=== PATIENT | female | born 2000 | race Caucasian/White ===

== ENCOUNTER 2019-06-06 16:55 | Observation (INO) | payer OTHER ==
[~2019-06-06] VITALS: Ht 175.3 cm; Wt 81.6 kg
[2019-06-06 17:29] LABS: HCG UR SG 1.038 (1.003-1.030); MICROSCOPIC NOT IND
[2019-06-06 17:36] LABS: CULTURE INDICATED? NO
--- NOTE | 2019-06-06 18:33 | NUR ---
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
--- NOTE | 2019-06-06 18:59 | NUR ---
ROUNDS COMPLETED. CALL LIGHT IN REACH.
[2019-06-06 19:24] LABS: BASOPHILS # (AUTO) 0.11 x10^3/uL (0-0.3); BASOPHILS % (AUTO) 1 % (0-1); EOSINOPHILS # (AUTO) 0.18 x10^3/uL (0-0.8); EOSINOPHILS % (AUTO) 2 % (1-7); LYMPHOCYTES # (AUTO) 2.25 x10^3/uL (1-6.1); LYMPHOCYTES % (AUTO) 21 % (22-44); MD NO; MEAN CORPUSCULAR HEMOGLOBIN 30.2 pg (27.0-34.8); MEAN CORPUSCULAR HGB CONC 32.8 g/dL (32.4-35.8); MEAN CORPUSCULAR VOLUME 92.2 fL (80-100); MEAN PLATELET VOLUME 8.4 fL (7.4-10.4); MONOCYTES # (AUTO) 1.33 x10^3/uL (0-1.4); MONOCYTES % (AUTO) 12 % (2-9); NEUTROPHILS # (AUTO) 7.12 x10^3/uL (1.8-8.0); NEUTROPHILS % (AUTO) 65 % (42-75); PLATELET COUNT 320 x10^3/uL (130-400); RED BLOOD COUNT 4.43 x10^6/uL (3.82-5.3)
[2019-06-06 19:32] LABS: ALANINE AMINOTRANSFERASE 22 U/L (12-78); ALBUMIN 3.6 g/dL (3.4-5.0); ANION GAP 1 mmol/L (5-15); CHLORIDE 108 mmol/L (98-107)
[2019-06-06 19:35] LABS: ALKALINE PHOSPHATASE 61 U/L (45-117); BILIRUBIN,TOTAL 0.3 mg/dL (0.2-1.0); TOTAL PROTEIN 8.2 g/dL (6.4-8.2)
--- NOTE | 2019-06-06 20:09 | NUR ---
ROUNDS COMPLETED. IV STARTED. TO CT.
--- NOTE | 2019-06-06 20:55 | NUR ---
BACK FROM CT.
[2019-06-06] MEDS ORDERED: OMNIPAQUE 350 MG/ML, 100ML BOTTLE ONE (20:57)
--- NOTE | 2019-06-06 21:36 | NUR ---
LAST PO INTAKE: 1829, 06/06/19. 09/04 PAIN, DENIES NEED FOR PAIN MEDS.
[2019-06-06] MEDS ORDERED: BUPIVACAINE/EPI 0.5% 1:200K ONE (21:50)
--- NOTE | 2019-06-06 21:59 | NUR ---
REPORT GIVEN TO OR.
[2019-06-06] MEDS ORDERED: MIDAZOLAM 1 MG/ML, 2ML ONE (22:59)
[2019-06-06] MEDS ORDERED: FENTANYL PF 100 MCG/2ML ONE (22:59)
[2019-06-07] MEDS ORDERED: BUPIVACAINE/EPI 0.5% 1:200K IM ONE (00:31)
[2019-06-07] MEDS ORDERED: ACETAMINOPHEN 325 MG TABLET PO PRN (01:00)
[2019-06-07] MEDS ORDERED: PROMETHAZINE 25 MG/ML, 1ML IV PRN (01:00)
[2019-06-07] MEDS ORDERED: HYDROmorphone 2 MG/ML, 1ML IVPush PRN (01:00)
[2019-06-07] MEDS ORDERED: OXYcodone 5 MG/5 ML ORAL.SOL UDC PO PRN (01:00)
[2019-06-07] MEDS ORDERED: LORazepam 2 MG/ML, 1ML IVPush PRN (01:00)
[2019-06-07] MEDS ORDERED: FENTANYL PF 100 MCG/2ML IV PRN (01:00)
[2019-06-07] MEDS ORDERED: ONDANSETRON ODT 8 MG PO PRN (01:00)
[2019-06-07] MEDS ORDERED: PROMETHAZINE 25 MG/ML, 1ML IM PRN (01:00)
[2019-06-07] MEDS ORDERED: MEPERIDINE/PF 25MG/ML,1ML IVPush PRN (01:00)
[2019-06-07] MEDS ORDERED: ONDANSETRON 2MG/ML, 2ML IV PRN (01:00)
[2019-06-07] MEDS ORDERED: OXYcodone 5 MG/5 ML ORAL.SOL UDC ONE (01:24)
[2019-06-07] MEDS ORDERED: FENTANYL PF 100 MCG/2ML ONE (01:24)
[2019-06-07] MEDS ORDERED: DEXAMETHASONE 4 MG/ML, 1ML ONE (01:25)
[2019-06-07] MEDS ORDERED: ONDANSETRON 2MG/ML, 2ML ONE (01:25)
[2019-06-07] MEDS ORDERED: SUCCINYLCHOLINE 20 MG/ML, 10ML ONE (01:25)
[2019-06-07] MEDS ORDERED: GLYCOPYRROLATE 0.2MG/1ML, 5ML ONE (01:25)
[2019-06-07] MEDS ORDERED: PROPOFOL 10 MG/ML, 20ML ONE (01:25)
[2019-06-07] MEDS ORDERED: CEFAZOLIN 1,000 MG ONE (01:25)
[2019-06-07] MEDS ORDERED: ROCURONIUM 10MG/ML,5ML ONE (01:25)
[2019-06-07] MEDS ORDERED: NEOSTIGMINE 1 MG/ML, 10ML ONE (01:25)
[2019-06-07] MEDS ORDERED: MEPERIDINE/PF 25MG/ML,1ML ONE (01:26)
[2019-06-07] MEDS ORDERED: LORazepam 2 MG/ML, 1ML ONE (01:36)
[2019-06-07] MEDS ORDERED: HYDR-3240 PO (02:45)
[2019-06-07] MEDS ORDERED: DOCU-131 PO (02:46)
[2019-06-07] MEDS ORDERED: ONDA4TAB7 PO (02:48)
[2019-06-07] MEDS ORDERED: HYDROcodone/APAP 5/325 TABLET PO PRN (03:00)
[2019-06-07] MEDS ORDERED: KETOROLAC 30 MG/1 ML IV PRN (03:00)
[2019-06-07] MEDS ORDERED: ONDANSETRON 2MG/ML, 2ML IVPush PRN (03:00)
[2019-06-07] MEDS ORDERED: LACTATED RINGERS 1,000 ML IV SCH (03:00)
[2019-06-07] MEDS ORDERED: MORPHINE SULFATE 4 MG/ML, 1ML IVPush PRN (03:00)
[2019-06-07] MEDS ORDERED: DIPHENHYDRAMINE 50 MG/ML, 1ML IVPush PRN (03:00)
[2019-06-07] MEDS ORDERED: ENOXAPARIN 40 MG/0.4 ML SQ SCH (04:00)
[2019-06-07 07:45] VITALS: BP 113/73
== END 2019-06-07 07:50 | disposition home or self-care (01) ==
LOC: ED 21:47 → EDIP 21:49 → INTOOBSV 21:49 → 4NE 06-07 02:22
PROVIDERS: ADMIT Surgery; ATTEND Surgery
DX: K35.80 Unspecified acute appendicitis (principal)
CPT/HCPCS: 36415; 44970; 74177; 80053; 81003; 81025; 83690; 85025; 88304; 96372; 96374; 99284; G0378; J0690; J1100; J1650; J1885; J2060; J2175; J2250; J2405; J2704; J2710; J3010; Q9967; 99285; J0330